=== PATIENT | male | born 1960 | race Caucasian/White ===

== ENCOUNTER 2017-08-12 14:35 | Inpatient (IN) | payer BC ==
[~2017-08-12] VITALS: Ht 175.3 cm; Wt 89.8 kg
[~2017-08-12 14:35] MED LIST: ADVIL200 MG PO; ZANTAC150 M1 PO
[2017-08-14] VITALS (8 sets, daily range): BP systolic 104–142; BP diastolic 59–75
[2017-08-15 00:40] VITALS: BP 124/75
[2017-08-15 04:22] VITALS: BP 121/64
[2017-08-15 06:52] LABS: HEMATOCRIT 36.4 % (39.0-50.0); HEMOGLOBIN 12.3 g/dl (14.0-18.0); IMMATURE GRANULOCYTES 0.4 % (0.0-1.0); MEAN CELL VOLUME 93.3 fL CALC (80.0-100.0); MEAN CORPUSCULAR HGB 31.5 pG CALC (26.0-32.0); MEAN CORPUSCULAR HGB CONC 33.8 g/L CALC (32.0-36.0); NEUT# 9.17 thou/uL (1.82-7.42); RED BLOOD COUNT 3.9 mill/uL (4.70-6.10); RED CELL DISTRI WIDTH 11.4 % (11.5-15.5)
[2017-08-15 06:54] LABS: HEMATOCRIT 36.4 % (39.0-50.0); HEMOGLOBIN 12.4 g/dl (14.0-18.0)
[2017-08-15 08:00] VITALS: BP 128/82
[2017-08-15 16:06] VITALS: BP 134/75
[2017-08-15 16:27] LABS: HEMATOCRIT 39.4 % (39.0-50.0); HEMOGLOBIN 13.1 g/dl (14.0-18.0); IMMATURE GRANULOCYTES 0.3 % (0.0-1.0); MEAN CORPUSCULAR HGB 31.3 pG CALC (26.0-32.0); MEAN CORPUSCULAR HGB CONC 33.2 g/L CALC (32.0-36.0); NEUT# 11.72 thou/uL (1.82-7.42); RED BLOOD COUNT 4.19 mill/uL (4.70-6.10); RED CELL DISTRI WIDTH 11.5 % (11.5-15.5)
[2017-08-15 19:25] VITALS: BP 129/70
[2017-08-16 00:05] VITALS: BP 129/71
[2017-08-16 04:40] VITALS: BP 125/73
[2017-08-16 06:09] LABS: HEMATOCRIT 36.1 % (39.0-50.0); HEMOGLOBIN 12.4 g/dl (14.0-18.0)
[2017-08-16 06:22] LABS: ANION GAP 15 (6-22 (CALC)); BUN 8 mg/dL (9-20); BUN/CREATININE RATIO 15 (12-20 (CALC)); CALCIUM 8.6 mg/dL (8.4-10.2); CARBON DIOXIDE 24 mmol/l (22-30); CHLORIDE 102 mmol/l (95-108); CREATININE 0.6 mg/dL (0.7-1.3); GFR > 60 ML/MIN (>=60 (CALC)); GFR FOR AFR.AMER. > 60 ML/MIN (>=60 (CALC)); GLUCOSE 125 mg/dL (75-110); POTASSIUM 3.5 mmol/l (3.5-5.1); SODIUM 137 mmol/l (137-146)
[2017-08-16 08:25] VITALS: BP 104/70
[2017-08-16] MEDS ORDERED: PANTOPRAZOLE SO40 M1 PO (10:05)
[2017-08-16] MEDS ORDERED: TYLENOL 500MG TAB PO (10:05)
[2017-08-16] MEDS ORDERED: ASPIRIN EC325 MG PO (10:05)
[2017-08-16] MEDS ORDERED: KEFLEX500 MG PO (10:05)
[2017-08-16] MEDS ORDERED: PERCOCET 10/31 COMBO PO (10:06)
[2017-08-16 10:30] LABS: HEMATOCRIT 37.9 % (39.0-50.0); IMMATURE GRANULOCYTES 0.3 % (0.0-1.0); MEAN CELL VOLUME 91.8 fL CALC (80.0-100.0); MEAN CORPUSCULAR HGB 31.5 pG CALC (26.0-32.0); MEAN CORPUSCULAR HGB CONC 34.3 g/L CALC (32.0-36.0); NEUT# 10.98 thou/uL (1.82-7.42); RED BLOOD COUNT 4.13 mill/uL (4.70-6.10); RED CELL DISTRI WIDTH 11.5 % (11.5-15.5)
[2017-08-16 11:45] LABS: URINE BLOOD DIPSTICK TRACE-INTACT (NEGATIVE); URINE CLARITY CLEAR; URINE GLUCOSE - DIPSTICK NEGATIVE (NEGATIVE); URINE KETONE >=80 mg/dL (NEGATIVE); URINE LEUK ESTERASE NEGATIVE (Negative); URINE NITRITE - DIPSTICK NEGATIVE (Negative); URINE PH 5.5 (4.5-8.0); URINE PROTEIN - DIPSTICK 30 mg/dL (NEG-TRACE); URINE SPECIFIC GRAVITY 1.025; URINE UROBILINOGEN - DIPSTICK 0.2 E.U./dL (0.2)
[2017-08-16 11:51] LABS: URINE BILIRUBIN - DIPSTICK SMALL (NEGATIVE); URINE COLOR DK. YELLOW
[2017-08-16 11:58] LABS: URINE MUCUS FEW hpf (NONE-FEW); URINE SQUAMOUS EPITHELIAL CELL FEW EPI/hpf (0-FEW)
== END 2017-08-16 14:15 | disposition home health service (06) | DRG 470 ==
LOC: MS2 08-14 07:06
PROVIDERS: Internal Medicine; ADMIT Orthopaedic Surgery; ATTEND Orthopaedic Surgery
PROC: 0SRC0J9 Replacement of Right Knee Joint with Synthetic Substitute, Cemented, Open Approach (ICD-10-PCS; principal; 2017-08-14)
DX: M17.11 Unilateral primary osteoarthritis, right knee (principal); M06.9 Rheumatoid arthritis, unspecified; J45.909 Unspecified asthma, uncomplicated; S83.281A Other tear of lateral meniscus, current injury, right knee, initial encounter; S83.241A Other tear of medial meniscus, current injury, right knee, initial encounter; R50.82 Postprocedural fever; X58.XXXA Exposure to other specified factors, initial encounter; Z87.891 Personal history of nicotine dependence
CPT/HCPCS: J2270

== ENCOUNTER 2019-10-10 05:45 | Day surgery (SDC) | payer BC ==
[~2019-10-10] VITALS: Ht 175.3 cm; Wt 83.0 kg
[~2019-10-10 05:45] MED LIST changes: +ASPIRIN EC325 MG PO; +KEFLEX500 MG PO; +MOTRIN800 MG PO; +PANTOPRAZOLE SO40 M1 PO; +PERCOCET 10/31 COMBO PO; +TYLENOL 500MG TAB PO
[2019-10-10] MEDS ORDERED: PERCOCET 10/31 COMBO PO (08:57)
[2019-10-10] MEDS ORDERED: ASPIRIN325 MG PO (08:57)
[2019-10-10 09:26] VITALS: BP 129/61
== END 2019-10-10 09:42 | disposition home or self-care (01) | DRG 489 ==
LOC: ORM 05:45
PROVIDERS: ATTEND Orthopaedic Surgery
PROC: 0SBD4ZZ Excision of Left Knee Joint, Percutaneous Endoscopic Approach (ICD-10-PCS; principal; 2019-10-10)
DX: S83.212A Bucket-handle tear of medial meniscus, current injury, left knee, initial encounter (principal); S83.282A Other tear of lateral meniscus, current injury, left knee, initial encounter; M65.862 Other synovitis and tenosynovitis, left lower leg; M94.262 Chondromalacia, left knee; X58.XXXA Exposure to other specified factors, initial encounter; Z87.891 Personal history of nicotine dependence
CPT/HCPCS: J0131; J1100